=== PATIENT | female | born 1965 | race Caucasian/White ===

== ENCOUNTER 2025-07-18 12:54 | Outpatient (AMB) | payer OTHER, SELFPAY ==
--- NOTE | 2025-07-18 12:59 | A.OFFPC_ITS ---
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 Billiard Table Required: No Accompanied by: Self / Same As Patient Allergies seraquil Adverse Reaction (Mild, Uncoded 07/18/25 13:28) Fainting Medication List - Last Reconciled 07/18/25 by GARRETT Wilson budesonide 180 mcg/actuation (Pulmicort Flexhaler) 1 inh inhalation DAILY PRN bupropion HCl SR (Wellbutrin SR) 150 mg PO DAILY cariprazine (Vraylar) 3 mg PO DAILY cyclosporine 0.05% (Restasis) 1 drp ophthalmic (eye) Q12H folic acid 1 mg PO DAILY gabapentin 100 mg PO BID gabapentin 600 mg PO BEDTIME gemfibrozil 600 mg PO DAILY levothyroxine (Synthroid) 25 mcg PO BID lisinopril 5 mg PO DAILY metformin 500 mg PO DAILY nifedipine ER (Procardia XL) 90 mg PO DAILY topiramate 50 mg PO DAILY venlafaxine ER 37.5 mg PO DAILY Tobacco use date assessed: 07/18/25 Dental Screening Dental Screen Date: 07/18/25 Did you have a dental visit in the last 12 months?: Yes Did you have a dental problem in the last 6 months where you did not have access to dental care?: No Was dental information given to patient?: 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 OBGYN: Need a referral Past medical history: Bipolar, depression, bipolar, high triglycerides Medications: Family HX: htn father, brother, everyone on mother side of family, heart disease everyone on mother side of the family, colon ca, uncle of uncles motherside on cousins. Problem: The patient is a 60-year-old individual presenting to [facility] care and for management of multiple chronic issues. The patient's last physical was approximately one year ago. The primary concern is chronic exhaustion, which has been ongoing for years. The fatigue has been severe, causing the patient to go to bed immediately after work and sleep through the weekends. About a year ago, the patient began experiencing nosebleeds and, after self-research, started taking 325 mg of ferrous sulfate, which provided some improvement. The patient also reports snoring but is unsure about apneic episodes, and wakes up still feeling tired despite adequate hours of sleep. The patient reports a lifelong history of chronic constipation, with bowel movements occurring as infrequently as once per week. The patient has been taking MiraLax 2-3 times per week, noting that more frequent use leads to diarrhea. Fluid intake is approximately 48 ounces of water per day. The patient has a history of significant weight loss, from a high of 330 lbs down to a current weight of approximately 210-220 lbs, and is inquiring about Ozempic to assist with further weight loss. Additional concerns include worsening bilateral hip pain, previously diagnosed as bursitis, which is aggravated by walking and lying down. Prior treatment consisted only of a few exercises shown by a provider, and the patient has never had an x-ray of the hips. The patient also reports an intermittent rash around the mouth for the past nine months. Past medical history is significant for type 2 diabetes, diagnosed many years ago but well-controlled with an A1c of 5.4 for the past 8-9 years. The patient has bipolar disorder and depression, managed by a psychiatrist and therapist. Other chronic conditions include hypertriglyceridemia, hypothyroidism, asthma, and Raynaud's phenomenon. The patient has a history of migraines, which are well-controlled with topiramate and has not had one in years. There is a history of peripheral neuropathy in the feet for 5-6 years, which the patient believes is not related to diabetes, and recent onset of tingling in the fingers when the hands are elevated. Family history is notable for colon cancer in maternal uncles. There is no family history of thyroid cancer or pancreatitis. Current specialists include a neurologist (Dr. Parisi) for migraines and a psychiatrist (Dr. Rush) and therapist (Dr. hCew) for mental health. 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 Health Maintenance - The patient's last physical exam was a bout one year ago. - The patient needs to establish care wi th an NURSE MIDWIFE/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. - Discussed family history of colon canc er in maternal uncles. - Discussed weight management, including the possibility of medications like Ozempic or Wegovy, and the insurance approval process. Social History - Alcohol use: The patient denies drinki ng alcohol. - Nutrition: The patient reported previo usly not eating much meat. - Fluid Intake: The patient consumes jamaal roximately 48 ounces of water daily. - Functional Status: The patient reports significant exhaustion that limits activities, causing the patient to go to bed immediately after work and sleep through weekends. Results - Labs: Patient reports A1c has been sta ble at 5.4 for the last 8-9 years. - Tests: Patient reports prior thyroid t ests were fine. [facility] Medical History (Updated 07/18/25 @ 21:03 by GARRETT Wilson) Bipolar 1 disorder Raynaud disease Hyperlipidemia Hypertension Asthma Diabetes type 2 Family History Brother Hypertension Father Hypertension Mother Hypertension Heart disease Maternal Uncle Colon cancer Social History Alcohol intake: current Comment: once a year Patient Tobacco Use Status: Never used Tobacco Current occupational status: employed Cognitive needs: No Hearing needs: No Vision needs: Yes Questionnaire PHQ-9 Over the last 2 weeks, how often have you been bothered by any of the following problems? 1. Little interest or pleasure in doing things: several days 2. Feeling down, depressed, or hopeless: several days 3. Trouble falling or staying asleep, or sleeping too much: several days 4. Feeling tired or having little energy: more than half the days 5. Poor appetite or overeating: several days 6. Feeling bad about yourself - or that you are a failure or have let yourself or your family down: several days 7. Trouble concentrating on things, such as reading the newspaper or watching television: several days 8. Moving or speaking so slowly that other people could have noticed. Or the opposite - being so fidgety or restless that you have been moving around a lot more than usual: not at all 9. Thoughts that you would be better off or of hurting yourself in some way: not at all Total score: 8 Depression Screening Interpretation: Positive Depression Screening Done: Yes 53450 - PHQ-9 Billing: Yes Source: Developed by Drs. Kev Reddy, Suzanne De Leon, Esdras Snyder and colleagues, with an educational virginie from [employer]. Thrive Questionnaire Date Thrive assessed: 07/18/25 I am a: Patient What is your living situation today?: I have a steady place to live Within the past 12 months, did the food you bought not last and you didn't have the money to get more?: Never true Within the past 12 months, did you worry whether your food would run out before you got money to buy more?: I choose not to answer this question Do you have trouble paying for medicines?: I choose not to answer this question Do you have trouble getting transportation to medical appointments?: No Do you have trouble paying your heating and electricity bill?: I choose not to answer this question Do you have trouble taking care of your child, family member or friend?: No Do you have trouble with day-to-day activities such as bathing, preparing meals, shopping, managing finances, etc.?: No Are you currently unemployed and looking for a job?: No Are you interested in more education?: No Please select the resources that you would like help with: None Currently or been in a relationship where the following occur: No concerns reported THRIVE Score: 0 AUDIT C Alcohol Use Questionnaire (AUDIT-C) 1. How often do you have a drink containing alcohol?: Monthly or less 2. How many drinks containing alcohol do you have on a typical day when you are drinking?: 1 or 2 3. How often do you have six or more drinks on one occasion?: Never Total Score: 1 IRAJ-7 AMB Questionnaire IRAJ-7 Date IRAJ - 7 assessed: 07/18/25 Feeling nervous, anxious, or on edge: 0 = Not at all Not being able to stop or control worryin = Several days Worrying too much about different things: 0 = Not at all Trouble relaxin = Not at all Being so restless that it is hard to sit still: 0 = Not at all Becoming easily annoyed or irritable: 0 = Not at all Feeling afraid as if something awful might happen: 0 = Not at all Total IRAJ-7 score (0-4 normal; 5-9 mild; 10-14 moderate; 15-21 severe): 1 Source: Developed by Drs. Kev Reddy, Suzanne De Leon, Esdras Snyder and colleagues, with an educational virginie from [employer]. IRAJ-7 Assessment Billing IRAJ-7 Assessment Tool: IRAJ-7 Assessment 39746 Review of Systems Narrative Review of Systems - General: Reports chronic exhaustion for years. - HEENT: Reports a history of nosebleeds. - Skin: Reports a recurring rash around the mouth for the past nine months and dry lips. - Cardiovascular: Denies chest pain and heart palpitations. - Respiratory: Reports snoring. - Gastrointestinal: Reports chronic constipation with bowel movements once a week. - Musculoskeletal: Reports bilateral hip pain that worsens with walking and lying down. - Neurological: Reports a history of migraines that are currently controlled. - Psychiatric: Reports a history of depression and bipolar disorder. Const Reports daytime sleepiness, Reports fatigue, Reports headache(s) (History of migraines-well controlled) and Reports snoring Eyes Denies loss of vision ENT Denies vertigo, Denies dizziness, Reports headache(s) (History of migraines-well controlled) and Denies sore throat Card Denies chest pain, Denies leg edema and Denies lightheadedness Resp Denies cough, Denies hemoptysis, Reports snoring and Denies wheezing GI Denies abdominal pain, Denies melena, Reports constipation, Denies diarrhea and Denies vomiting Denies urinary frequency, Denies dysuria and Denies urinary urgency Musc Reports arthralgias (Bilateral hip ), Denies joint swelling, Denies numbness and Denies tingling Skin/Breast Reports rash (Recurrent around mouth) Neuro Denies Abnormal speech present, Denies behavioral changes, Denies vertigo, Denies dizziness, Reports headache(s) (History of migraines-well controlled), Denies loss of vision, Denies memory loss, Denies numbness and Denies tingling Psych Denies anxiety, Denies behavioral changes, Reports depression, Denies memory loss, Denies panic attacks and Reports other (Bipolar disorder) Endo Reports fatigue Timbo/Lymph Denies easy bleeding and Denies easy bruising Aller/Immun Denies wheezing Physical exam (Primary Care) Vital Signs: Last Vital Signs Pulse 80 07/18/25 13:03 Resp 18 07/18/25 13:03 BP 118/72 07/18/25 13:03 Pulse Ox 98 07/18/25 13:03 Oxygen Delivery Method Room Air 07/18/25 13:03 BMI result Body Mass Index 31.6 Tobacco/Smoking Status: Tobacco use Status Tobacco use date assessed 07/18/25 07/18/25 13:20 Patient Tobacco Use Status Never used Tobacco 07/18/25 13:20 PHQ-9: PHQ-9 Score PHQ-9: Total score 8 07/18/25 13:42 Depression Screening Interpretation: Positive Thrive Assessment: Date of Thrive Assessment Date Thrive assessed 07/18/25 07/18/25 13:20 Currently or been in a relationship where the following occur: No concerns reported Narrative Physical Exam - HEENT: Bilateral cerumen impaction noted. - Mouth: Perioral rash and dry lips observed. - Lungs: Clear to auscultation bilaterally. - Abdomen: Soft and non-tender to palpation. - Musculoskeletal: Tenderness elicited on palpation over bilateral hips. Const General: healthy appearing, no acute distress, alert and awake Nutritional Appearance: well nourished Orientation/consciousness: oriented to person, oriented to place and oriented to time HENMT Ears: Abnormal EAC present cerumen impaction bilateral General nose exam: Normal nasal mucous membranes and turbinates present Mouth: lip abnormal (Perioral dried up rash-consistent with angular cheilitis) Eyes Conjunctivae: conjunctivae normal Sclerae: sclerae normal Pupils: Equal, round and reactive pupils present Neck Neck: Yes no lymphadenopathy and Yes no JVD Thyroid: Thyroid normal Carotids: no bruits Resp Effort & Inspection: normal respiratory effort and not tachypneic Auscultation: no crackles, no rales, no rhonchi and no wheezes Cardio Rate: regular rate Rhythm: regular rhythm Heart sounds: S1 normal heart sound present, S2 normal heart sound present, no murmurs and normal S1 and S2 GI Palpation (GI): Soft to palpation, nontender, no hepatomegaly and no splenomegaly Auscultation: normal bowel sounds General: Yes no CVA tenderness Back/Spine/Pelvis Back: no CVA tenderness Skin General skin exam: dry skin Rashes: rashes noted (Angular cheilitis) Neuro General: oriented to person, oriented to place and oriented to time Cranial nerves: Yes Equal, round and reactive pupils present Speech: No Abnormal speech present Gait exam (Neuro): Normal gait present Motor exam (neuro): no tremor noted Extrem Right upper extremity: full ROM Left upper extremity: full ROM Right lower extremity: full ROM and hip/thigh Details: tenderness; no swelling; no edema Left lower extremity: full ROM and hip/thigh Details: tenderness; no swelling; no edema Psych Mental Status: mental status grossly normal Speech and movement: Normal speech and movement present Affect: normal affect Attitude: cooperative Thought process: Normal thought process present Results AMB Hemoglobin A1c AMB Hemoglobin A1c 5.5 % Last Edit by Rosina Taylor MA on 07/18/25 13:40 Results Reviewed Results Reviewed: Laboratory Last Values Hgb A1c (Clinic) 5.5 % (4.0-6.0) 07/18/25 13:30 Coding Level of Care Code New Pt Level 4 (24475) Diagnoses Hypertension, unspecified type I10 Hypertension type: unspecified Type 2 diabetes mellitus with diabetic neuropathy, without long-term current use of insulin E11.40 Diabetes mellitus retirement insulin use: without exterminator use Diabetes mellitus complication status: with neurologic complications Diabetes mellitus complication detail: with unspecified neuropathy Obesity (BMI 30.0-34.9) E66.811 Bilateral hip pain M25.551; M25.552 Daytime sleepiness R40.0 Numbness and tingling R20.0; R20.2 Intermittent asthma, unspecified asthma severity, unspecified whether complicated J45.20 Asthma severity: unspecified severity Asthma persistence: intermittent Asthma complication type: unspecified Loud snoring R06.83 Fatigue, unspecified type R53.83 Fatigue type: unspecified Angular cheilitis K13.0 Bilateral impacted cerumen H61.23 Bipolar 1 disorder F31.9 Constipation, unspecified constipation type K59.00 Constipation type: unspecified constipation type Depression, unspecified depression type F32.A Depression Type: unspecified Additional Codes PHQ-9 - 12656 - PHQ-9 Billing: Yes ([id number]) IRAJ-7 Assessment Billing - IRAJ-7 Assessment Tool: IRAJ-7 Assessment 94374 ([id number]) Time Spent (min) 45 Assessment & Plan Assessment & Plan (1) Hypertension: Code(s): I10 - Essential (primary) hypertension Category: Medical Qualifiers: Hypertension type: unspecified Qualified Code(s): I10 - Essential (primary) hypertension Plan: Blood pressure 118/72-systolic goal less than 130 mm Hg Reinforced low-salt diet Continue lisinopril 5 mg daily, nifedipine ER 90 mg daily (2) Diabetes type 2: Code(s): E11.9 - Type 2 diabetes mellitus without complications Category: Medical Qualifiers: Diabetes mellitus retirement insulin use: without exterminator use Diabetes mellitus complication status: with neurologic complications Diabetes mellitus complication detail: with unspecified neuropathy Qualified Code(s): E11.40 - Type 2 diabetes mellitus with diabetic neuropathy, unspecified (3) Obesity (BMI 30.0-34.9): Code(s): E66.811 - Obesity, class 1 Category: Medical Plan: The patient has made significant progress with weight loss and is interested in pharmacotherapy to continue this progress. A prior authorization for Ozempic will be attempted, though it was explained to the patient that approval is challenging for weight loss alone, especially with a well-controlled A1c. Alternative medications like Wegovy and the general difficulties with insurance coverage for this class of drugs were discussed. (4) Bilateral hip pain: Code(s): M25.551 - Pain in right hip; M25.552 - Pain in left hip Category: Medical Plan: The patient reports worsening bilateral hip pain, consistent with a history of bursitis. A bilateral hip x-ray will be ordered to evaluate for underlying pathology, as one has never been done (5) Daytime sleepiness: Code(s): R40.0 - Somnolence Category: Medical (6) Numbness and tingling: Code(s): R20.0 - Anesthesia of skin; R20.2 - Paresthesia of skin Category: Medical Plan: Patient reports intermittent numbness and tingling to hands primarily when she holds her hands above her heart level. Discussed with the patient that this might be circulation related. We will evaluate lytes and vitamin levels to rule out any deficiencies. (7) Asthma: Code(s): J45.909 - Unspecified asthma, uncomplicated Category: Medical Qualifiers: Asthma severity: unspecified severity Asthma persistence: intermittent Asthma complication type: unspecified Qualified Code(s): J45.20 - Mild intermittent asthma, uncomplicated Plan: Patient reports that her asthma has been well-controlled. She is currently on budesonide 180 mcg/actuation 1 inhalation daily. We will continue to monitor (8) Loud snoring: Code(s): R06.83 - Snoring Category: Medical Plan: The patient's primary concern is chronic, debilitating exhaustion. To further evaluate, fasting labs will be ordered, including an iron panel, given the patient's self-treatment with iron. A home sleep study will also be ordered to rule out sleep apnea as a contributing factor, given the patient's report of snoring and unrefreshing sleep (9) Fatigue: Code(s): R53.83 - Other fatigue Category: Medical Qualifiers: Fatigue type: unspecified Qualified Code(s): R53.83 - Other fatigue Plan: The patient's primary concern is chronic, debilitating exhaustion. To further evaluate, fasting labs will be ordered, including an iron panel, given the patient's self-treatment with iron. A home sleep study will also be ordered to rule out sleep apnea as a contributing factor, given the patient's report of snoring and unrefreshing sleep (10) Angular cheilitis: Code(s): K13.0 - Diseases of lips Category: Medical Plan: The patient has an intermittent rash around the mouth consistent with angular cheilitis. Nystatin ointment will be prescribed to treat the condition. (11) Bilateral impacted cerumen: Code(s): H61.23 - Impacted cerumen, bilateral Category: Medical Plan: Bilateral cerumen impaction was noted on physical exam. The patient is instructed to use Debrox ear drops twice daily for at least four days to soften the wax, then schedule a dedicated appointment for an ear flush (12) Bipolar 1 disorder: Code(s): F31.9 - Bipolar disorder, unspecified Category: Medical Plan: Patient reports that her bipolar is well controlled. Continue Vraylar 3 mg daily, bupropion SR 150 mg daily, venlafaxine ER 37.5 mg daily, gabapentin 100 mg b.i.d. Follow up with Psychiatry as scheduled ( Dr. Rush ) (13) Constipation: Code(s): K59.00 - Constipation, unspecified Category: Medical Qualifiers: Constipation type: unspecified constipation type Qualified Code(s): K59.00 - Constipation, unspecified Plan: The patient has a lifelong history of severe constipation, with bowel movements only once weekly, posing a risk for complications such as bowel perforation. An abdominal x-ray will be ordered to assess the current stool burden. The patient is instructed to increase daily fluid intake to at least 64 ounces and to take MiraLax once daily on a consistent basis, rather than intermittently. If the x- ray reveals significant stool retention, adding a stimulant laxative such as Senna Plus will be considered (14) Depression: Code(s): F32.A - Depression, unspecified Category: Medical Qualifiers: Depression Type: unspecified Qualified Code(s): F32.A - Depression, unspecified Plan: Patient reports that she is doing well. She has seen her psychiatrist every 6 weeks and her therapist every other week Psychiatrist is Dr. Rush and therapist is Naina. Continue venlafaxine ER 37.5 mg, bupropion SR 150 mg daily Plan Discussion Notes I discussed with the patient that we would prioritize investigating the primary complaint of chronic exhaustion. The plan includes ordering extensive fasting labs and a home sleep study, and we will review these results at the next visit. I explained the potential risks associated with severe chronic constipation, such as bowel perforation, and emphasized the need for consistent management. We discussed the plan to order an abdominal x-ray to assess stool burden and the importance of increasing fluid intake and taking MiraLax daily. I also explained that the patient's intermittent diarrhea is likely overflow diarrhea around a hard stool impaction. Regarding the patient's interest in Ozempic, I was transparent about the significant challenges in obtaining insurance approval for weight loss, especially with a well-controlled A1c. I informed the patient that I would still submit the prior authorization request. We discussed the other concerns, including ordering x-rays for the bilateral hip pain, prescribing an ointment for the angular cheilitis, and a plan to manage the bilateral cerumen impaction with drops followed by an office-based flush procedure. Relevant medication refills will be sent to the pharmacy. The patient agreed to a follow-up visit in seven weeks to review all results and formulate a more definitive, comprehensive plan. Patient Instructions - Please get fasting blood work done as ordered. - An order has been placed for an x-ray of your stomach and both of your hips. - A home sleep study will be ordered for you to check for breathing problems during sleep. - Increase your daily water intake to at least 64 ounces (about 8 glasses). - Take one dose of MiraLax every day to help with constipation. - An ointment has been prescribed for the rash around your mouth. - To soften the wax in your ears, use Debrox ear drops. Place 5 drops in each ear twice a day for at least 4 days before your ear cleaning appointment. - After using the drops, please call our office to schedule a separate appointment for an ear flush to remove the softened wax. - Your prescriptions for lisinopril, metformin, and levothyroxine will be refilled and sent to [facility] pharmacy in [place]. - Please schedule a follow-up appointment in 7 weeks to go over all your test results. Orders: Orders Complete Blood Count Auto Diff Today E11.9 - Type 2 diabetes mellitus without complications, E78.5 - Hyperlipidemia, unspecified, I10 - Essential (primary) hypertension, I73.00 - Raynaud's syndrome without gangrene, J45.909 - Unspecified asthma, uncomplicated, R20.0 - Anesthesia of skin, R20.2 - Paresthesia of skin IRON PROFILE Today E11.9 - Type 2 diabetes mellitus without complications, E78.5 - Hyperlipidemia, unspecified, I10 - Essential (primary) hypertension, I73.00 - Raynaud's syndrome without gangrene, J45.909 - Unspecified asthma, uncomplicated Vitamin D 25-OH Total Today E11.9 - Type 2 diabetes mellitus without complications, E78.5 - Hyperlipidemia, unspecified, I10 - Essential (primary) hypertension, I73.00 - Raynaud's syndrome without gangrene, J45.909 - Unspecified asthma, uncomplicated Vitamin B12 and Folate Today E11.9 - Type 2 diabetes mellitus without complications, E78.5 - Hyperlipidemia, unspecified, I10 - Essential (primary) hypertension, I73.00 - Raynaud's syndrome without gangrene, J45.909 - Unspecified asthma, uncomplicated UA CC w/rflx Micro + Cult Today E11.9 - Type 2 diabetes mellitus without complications, E78.5 - Hyperlipidemia, unspecified, I10 - Essential (primary) hypertension, I73.00 - Raynaud's syndrome without gangrene, J45.909 - Unspecified asthma, uncomplicated TSH reflex Free T4 Today E11.9 - Type 2 diabetes mellitus without complications, E78.5 - Hyperlipidemia, unspecified, I10 - Essential (primary) hypertension, I73.00 - Raynaud's syndrome without gangrene, J45.909 - Unspecified asthma, uncomplicated Free T4 (Free Thyroxine) Today E11.9 - Type 2 diabetes mellitus without complications, E78.5 - Hyperlipidemia, unspecified, I10 - Essential (primary) hypertension, I73.00 - Raynaud's syndrome without gangrene, J45.909 - Unspecified asthma, uncomplicated Ferritin Today E11.9 - Type 2 diabetes mellitus without complications, E78.5 - Hyperlipidemia, unspecified, I10 - Essential (primary) hypertension, I73.00 - Raynaud's syndrome without gangrene, J45.909 - Unspecified asthma, uncomplicated XR hips MANN min 3V Today M25.551 - Pain in right hip, M25.552 - Pain in left hip RT home sleep study Today E66.811 - Obesity, class 1, R06.83 - Snoring, R40.0 - Somnolence XR abdomen min 2V Today K59.00 - Constipation, unspecified AMB Hemoglobin A1c Today Z13.9 - Encounter for screening, unspecified Comprehensive [place]. Panel Fast Today E11.9 - Type 2 diabetes mellitus without complications, E78.5 - Hyperlipidemia, unspecified, I10 - Essential (primary) hypertension, I73.00 - Raynaud's syndrome without gangrene, J45.909 - Unspecified asthma, uncomplicated Lipid Panel Today E11.9 - Type 2 diabetes mellitus without complications, E78.5 - Hyperlipidemia, unspecified, I10 - Essential (primary) hypertension, I73.00 - Raynaud's syndrome without gangrene, J45.909 - Unspecified asthma, uncomplicated Magnesium Today E11.9 - Type 2 diabetes mellitus without complications, E78.5 - Hyperlipidemia, unspecified, I10 - Essential (primary) hypertension, I73.00 - Raynaud's syndrome without gangrene, J45.909 - Unspecified asthma, uncomplicated Referrals NURSE MIDWIFE/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 Referral Z01.419 - Encounter for gynecological examination (general) (routine) without abnormal findings Medications: New levothyroxine (Synthroid) 25 mcg PO BID 90 tabs 3RF metformin 500 mg PO DAILY 90 tabs 3RF cyclosporine 0.05% (Restasis) 1 drp ophthalmic (eye) Q12H 60 ea 3RF budesonide 180 mcg/actuation (Pulmicort Flexhaler) 1 inh inhalation DAILY 1 ea 3RF lisinopril 5 mg PO DAILY 90 tabs 3RF nystatin 1 appl topical BID 30 grams 3RF folic acid 1 mg PO DAILY 90 tabs 3RF gemfibrozil 600 mg PO DAILY 90 tabs 3RF nifedipine ER (Procardia XL) 90 mg PO DAILY 90 tabs 3RF topiramate 50 mg PO DAILY 90 tabs 3RF Patient Instructions: Follow up in 7 weeks
[2025-07-18 13:03] VITALS: BP 118/72; PULSE 80; RESP 18; O2SAT 98; BMI 31.6
--- OUTSIDE RECORDS SUMMARY | 2025-07-18 15:20 | XMS_ITS | Clinical Summary ---
Author Organization [facility] Address [address] [place] [address] Care Team Providers Care Candy Attendant Name Role Phone Laith Brand MD Primary Care Provid er Allergies Active Allergy Reactions Criticality Noted Date Comments Quetiapine Syncope High 02/20/2021 Medications * This document contains information received from the source organization and may not represent a complete record from that organization. lisinopriL (PRINIVIL,ZEST RIL) 5 mg tablet Take 1 tablet (5 mg total) by mouth once a day. 30 tablet 03/14/20 22 Active folic acid (FOLVITE) 1 mg tablet Take 1 tablet (1 mg total) by mouth once a day. 30 tablet 03/13/20 22 Active metFORMIN (GLUCOPHAGE) 500 mg tablet 1 tablet DAILY (route: oral) 03/31/20 22 Active gemfibroziL (LOPID) 600 mg tablet Take 600 mg by mouth 2 times a day. 03/31/20 22 Active gabapentin (NEURONTIN) 600 mg tablet Take 600 mg by mouth every evening. 03/31/20 23 Active venlafaxine XR (EFFEXOR XR) 150 mg capsule Take 150 mg by mouth once a day. 04/02/20 23 Active NIFEdipine XL (PROCARDIA XL) 90 mg tablet Take 90 mg by mouth once a day. Active gabapentin (NEURONTIN) 100 mg capsule Take 200 mg by mouth daily. Active cariprazine (Vraylar) 1.5 mg capsule capsule Take 1.5 mg by mouth once a day. Active levothyroxine (SYNTHROID, LEVOTHROID) 50 mcg tablet Take 50 mcg by mouth daily. Active albuterol (PROAIR HFA,VENTOLIN HFA) 90 mcg inhaler Inhale 1-2 puffs by mouth every 6 hours as needed for wheezing or shortness of breath. Use with spacer. Active budesonide-for moteroL (SYMBICORT) 160-4.5 mcg inhaler Inhale 2 puffs by mouth 2 times a day. Rinse mouth with water after use. Do not swallow. Active buPROPion SR (WELLBUTRIN SR) 200 mg tablet Take 200 mg by mouth once a day. Active topiramate (TOPAMAX) 25 mg tablet Take 2 tablets (50 mg total) by mouth 2 times a day. 360 tablet 3 06/28/20 25 026 Active topiramate (TOPAMAX) 25 mg tablet Take 2 tablets (50 mg total) by mouth 2 times a day. 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 CT AP on admission demonstrated stercoral sigmoid colitis (evidenced by large volume stool in the proximal sigmoid colon with focal distention and pericolonic fat stranding but without wall thickening). Suspect overflow incontinence as most likely etiology. 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 In the setting of several days of diarrhea and several weeks of poor p.o. intake. Orthostatic negative with blood pressure criteria, but heart rate was not recorded. -Fluid resuscitation as above -Telemetry Dark stools 04/10/2023 Assessment & Plan (04/12/2023 3:03 PM EDT): Patient endorsed trace clumps of dark-colored stool in her diarrhea preceding admission. She has had an EGD last in January 2022 which demonstrated a moderate Schatzki ring that was dilated, otherwise normal. Colonoscopy at the same time demonstrated excessive looping but was otherwise normal. She did receive a single dose of IV Protonix on current admission, hemoglobin normal at that time. She has endorsed melena today so pantoprazole was started -Pantoprazole 40mg daily -Monitor clinically for melena or hematochezia Migraines 04/10/2023 Assessment & Plan (04/10/2023 8:48 PM EDT): Chronic, follows with Dr. Leblanc (Neurology). On home topiramate, nightly tizanidine, and PRN Ubrelvy. -Continue home topiramate 50mg BID -Hold home tizanidine for now, monitor carefully for withdrawal -Hold home Ubrelvy HTN (hypertension) 04/10/2023 Assessment & Plan (04/12/2023 2:59 PM EDT): Chronic, on home lisinopril and nifedipine -Continue home nifedipine 90mg -Hold home lisinopril Chronic pain 04/10/2023 Assessment & Plan (04/10/2023 8:50 PM EDT): Chronic. She takes home gabapentin (200 mg daily and 600 mg nightly). -Reduced dose gabapentin 200 mg every 12 hours for now Chronic constipation 03/10/2022 Assessment & Plan (03/10/2022 2:34 PM EDT): Patient with history ff chronic constipation. Colonoscopy on 02/06/2022 showed significant looping of the colon. GI recommended repeat colonoscopy in 5 years for surveillance. -- Continue laxatives Asthma 03/06/2022 Assessment & Plan (04/10/2023 8:49 PM EDT): Chronic, on home albuterol and Pulmicort. -Continue home medications Assessment & Plan (03/06/2022 12:47 AM EDT): No acute issues - Pulmicort and brovana nebs while inpatient to replace baseline symbicort inhaler Type 2 diabetes mellitus wit hout complication, without long-term current use of insulin 03/05/2022 Assessment & Plan (04/10/2023 8:50 PM EDT): Chronic, on home metformin. Last A1c was 5.5 in May 2022. -Lispro LDISS ACHS -Hold home metformin Assessment & Plan (03/05/2022 11:20 PM EDT): On metformin alone at baseline. Also takes gemfibrozil. - Hold metformin, start NEETU - Can hold gemfibrozil for now Hypothyroidism 03/04/2022 Assessment & Plan (04/10/2023 8:48 PM EDT): Chronic, on levothyroxine. TSH on admission 3.712. -Continue levothyroxine 50 mcg daily Assessment & Plan (03/06/2022 1:02 AM EDT): On synthroid 75 mcg per facility notes. Recent TSH/FT4 were unremarkable on 03/02. Psych was concerned for possible hypothyroid contributing to symptoms, given poor appetite/non-specific GI symptoms and depressive symptoms with poor cognition. Can investigate further if above workup unrevealing, but this seems unlikely with a normal FT4. - Continue synthroid 75 mcg daily for now Delirium 03/04/2022 Episode of recurrent major depressive disorder 0 03/01/2022 Bipolar disorder 03/01/2022 Assessment & Plan (04/11/2023 2:04 PM EDT): Chronic, multiple psychiatric medications which she has been modifying over the last 1-2 months. It appears that she was just recently started on bupropion and cariprazine. Clonidine held on admission given potential concern for clonidine toxicity secondary to CISCO. -Venlafaxine 75 mg daily -Bupropion 150 mg daily -Hold clonidine -Hold cariprazine, iso renal function, not on formulary Assessment & Plan (03/05/2022 11:30 PM EDT): On several medications at baseline, which we will hold in setting of acute altered mental status. No major concerns for acute withdrawal of the medications that have been reviewed. Specifically, at her psych facility, she was getting lithium, latuda, trazodone and olanzapine prn. In past was on wellbutrin and duloxetine but does not look like these have been administered recently. - Hold lithium, latuda, trazodone and olanzapine for now - If acutely agitated can manage with prn antipsychotics - Formal med rec in AM Schatzki's ring of distal esophagus 02/06/2022 Family history of colon cancer 11/25/2021 Esophageal dysphagia 11/25/2021 Intractable chronic migraine without aura and without status migrainosus 04/17/2021 Assessment & Plan (03/05/2022 11:27 PM EDT): Noted history of this in chart, was previously on topiramate. This was not one of her prescribed medications at her psych facility per documentation however, so it does not seem it needs to be continued. Not clear when she last took it. There is some mild concern for lower seizure threshold with rapid withdrawal, but this risk seems low if she was not being given this med at her psych facility. - Can hold on prescribing topiramate, obtain formal med rec in AM Altered mental status Resolved Problems Problem Noted Date Diagnosed Date Resolved Date SIRS (systemic inflammatory response syndrome) 04/10/2023 04/13/2023 Assessment & Plan (04/12/2023 5:47 PM EDT): SIRS Criteria Patient met the following SIRS Criteria: Respiratory Rate >20 and WBC >12 Sepsis Criteria Sepsis was present on admission. Source of infection is intra-abdominal/stercoral colitis. Blood cultures were drawn prior to antibiotics given. Initial lactic acid was drawn and value was less than 2 so no repeat was required. Patient was ordered the following Antibiotics: Vancomycin and Zosyn Full Sepsis bolus given. Patient received 3 Liters of fluid bolus. Goal: 3 Liters (30ml/kg). Severe Sepsis Patient has organ dysfunction that meets criteria for severe sepsis. Patient has Systolic Blood Pressure <90 and Creatinine >2. 04/10 blood cultures growing Streptococcus mitis. -Cefepime 1g every 6 hours (D1: 04/10) -Flagyl 500 mg every 12 hours (D1: 04/10) -Status post vancomycin (04/10) and Zosyn (04/10) -Follow up 04/11 blood cultures -Trend fever curve and WBC count CISCO (acute kidney injury) 04/10/2023 Assessment & Plan (04/12/2023 2:57 PM EDT): Initial labs demonstrated creatinine 2.93 (most recent baseline was 0.77 in May 2022). In the setting of reported 6-week onset poor p.o. intake and several days of diarrhea preceding admission. Suspect prerenal etiology is most likely. Improved with fluid resuscitation. Urine studies suggest prerenal etiology. This appears to be resolving with creatinine improved to 0.96 on 04/12. -Trend BMP and Mg daily, replete K <4 and Mag <2 -Avoid nephrotoxins, renally dose meds -I/O's, daily weights Hypotension 04/10/2023 04/12/2023 Assessment & Plan (04/12/2023 2:53 PM EDT): Initial BP 85/44, improved to 102/58 in the ED status post total of 3 L IVF. Also noted to have some bradycardia. In the setting of p.o. intake and several days of diarrhea on admission. Given CISCO on admission, toxicology was consulted for concern for potential clonidine toxicity-recommended to hold clonidine serial EKG monitoring. Patient has been hemodynamically stable since 04/12. -Vitals q4hrs -Fluids as per CISCO section Altered mental status, unspe cified altered mental status type 03/05/2022 03/13/2022 Assessment & Plan (03/06/2022 1:04 AM EDT): Unclear etiology, DDx includes polypharmacy, low grade vs chronic lithium toxicity or delirium. No obvious metabolic abnormalities noted on labs. Eclectic level mildly elevated to 1.6 (threshold 1.2). No focality on neuro exam, some expressive aphasia but this could be as result of drug effects. Hyperreflexic with mild clonus on exam, frequent myoclonic jerks and some cognitive/memory deficits, which could all be compatible with lithium toxicity, but level of drug elevation is very mild. - Tox consulted from ED, recommended monitoring overnight with IVF. S/p 1L NS - No evidence of nephrogenic DI - Repeat lithium level and basic labs in AM - Keep on tele to monitor QTc/QRS - CT head unremarkable - Check basic urine tox, syphilis screen. Ammonia normal. Unlikely B12/folate issue with normal H/H - Hold home psych meds for tonight - Do not think MRI is needed urgently (exam doesn't seem compatible with CVA), but will order one on routine basis - Consider psych consult in AM for med adjustment, cullen if improved with holding meds Encounters Date Type Department Care Team Description 06/25/2025 Refill [facility] Neurology [address] [place] [address] Yefri Leblanc MD 05/30/2025 Orders Only [facility] Neurology [address] [place] [address] Yefri Leblanc MD 05/30/2025 Telephone [facility] Neurology [address] [place] [address] Yefri Leblanc MD from Last 3 Months Family History Medical History Relation Name Comments Migraines Mother Relation Name Status Comments Mother Social History Tobacco Use Types Packs/Day Years Used Date Smoking Tobacco: Never Smokeless Tobacco: Never Tobacco Cessation:Counseling Given: Not Answered Alcohol Use Standard Drinks/Week Comments Never 0 (1 standard drink = 0.6 oz pur e alcohol) Comments No Sex and Gender Information Value Date Recorded Sex Assigned at Female 02/20/2021 9:10 AM EDT Legal Sex Female 5:53 AM EDT Gender Identity Female 02/20/2021 9:10 AM EDT Sexual Orientation Straight 02/20/2021 9: 10 AM EDT Last Filed Vital Signs Vital Sign Reading Time Taken Comments Blood Pressure 116/66 08/28/2024 9:23 AM EST Pulse 71 03/21/2024 10:47 AM EDT Temperature 36.2 C (97.2 F) 03/21/2024 10:47 AM EDT Respiratory Rate 18 04/13/2023 3:27 PM EDT Oxygen Saturation 95% 03/21/2024 10:47 AM EDT Inhaled Oxygen Concentration - - Weight 98.1 kg (216 lb 3.2 oz) 08/28/2024 9:23 A M EST Height 177.8 cm (5' 10 ) 04/10/2023 9:54 PM EDT Body Mass Index 31.02 04/10/2023 9:54 PM EDT Plan of Treatment Upcoming Encounters Date Type Department Care Team (Late st Contact Info) Description 07/25/2025 9:00 AM EST Follow-Up [facility] Neurology [address] [place] [address] Yefri Leblanc MD [address] [place] [id number] 10/22/2025 8:00 AM EDT Office Visit [facility] Obstetrics and Gynecology [address] [place] [id number] 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: Dk Bull DO [address] [place] [address] [phone] Health Maintenance Due Date Last Done Comments HIV Screening 1965 Hepatitis C Screening 1965 Ophthalmology Exam 1974 Urine Microalbumin 1974 RSV Vaccine (60+ years old and patients) (1 - Risk 50-74 years 1-dose series) 2014 Hemoglobin A1C 11/16/2022 05/18/2022, 03/02/2022 Mammogram 03/25/2023 03/25/2021 Basic Metabolic Panel 04/13/2024 04/13/2023 , 04/12/2023, 04/11/2023, Additional history exists Pneumococcal Vaccine: 50+ Years (3 of 3 - PCV20 or PCV21) 06/12/2024 06/12/2019, 12/04/2015 Alcohol/Substance Use Screening 08/16/2024 Depression Screening and Follow-Up 08/16/2024 Social Drivers of Health Annual Screening 08/16/2024 DTaP,Tdap,and Td Vaccines (2 - Td or Tdap) 10/09/2024 10/09/2014 Influenza Vaccine (#1) 2025 , 06/12/2023, 05/20/2022, Additional history exists COVID-19 Vaccine ( season) 2025 06/09/2024, 06/12/2023, 05/20/2022, Additional history exists HPV and Pap Smear 02/20/2026 02/20/2021 Colonoscopy 02/06/2027 02/06/2022, 01/15, 02/06/2022, Additional history exists Cervical Cancer Screening 08/28/2027 Pap Smear 08/28/2027 08/28/2024, 02/2022, 02/20/2021, Additional history exists Zoster Vaccines Completed 06/12/2023, 01/15, 11/05/2020 Hepatitis B Vaccines Aged Out No long er eligible based on patient's age to complete this topic Procedures * Due to [place] [employer] law, this organization might not be sharing negative HIV tests. Procedure Name Priority Date/Time Associated Diagnosis Comments PAP Routine 08/28/2024 9:45 AM EST Cervical high risk human papillomavirus (HPV) DNA test positive BASIC METABOLIC PANEL Routine 04/13/2023 6:08 AM EDT HEMOGLOBIN A1C Routine 05/18/2022 4:13 PM EDT Type 2 diabetes mellitus without complication, unspecified whether snf insulin use COLONOSCOPY 02/06/2022 CATHERINE BILATERAL SCREENING DIGITAL MAMMOGRAM WITH TONY Routine 03/25/2021 2:00 PM EDT Encounter for screening mammogram for malignant neoplasm of breast [facility] PAP W/HPV, MRNA E6/E7, AND CT/NG Routine 02/20/2021 4:33 PM EDT Cervical cancer screening from Last 3 Months or Most Recently Relevant to Health Maintenance Results * Due to [facility] law, this organization might not be sharing negative HIV tests. * Pap (08/28/2024 9:45 AM EST) Specimen Adequacy Satisfactory for evaluation [facility] MANUAL 5 2:43 PM EST [facility] Pathologist Cytology Interpretation Negative for intraepithelial lesion or malignancy. [facility] MANUAL 5 2:43 PM EST [facility] at 1443 EST Comment:This is the result o f a morphological screening test with an inherent possibility of a false negative interpretation. Trading Analyst Statement This Pap test was examined by the [facility], [employer], [place], [place]. This Pap test was examined in accordance with the [facility] Cytopathology Laboratory written policy, which incorporates all CLIA mandates. Current screening guidelines can be found in [place]: A Cancer Journal for Clinicians 2020;70:321-346. Current ASCCP management guidelines for abnormal Pap tests are published in the Journal Lower Genital Tract Disease Volume 2020;24:102-131. [facility] MANUAL 5 2:43 PM EST [facility] Clinical History Hx HRPV+ [facility] MANUAL 5 2:43 PM EST [facility] Resulting Agency Case was signed out at [facility], Department of Pathology, [employer] 3 CLIA [id number] [facility] MANUAL 5 2:43 PM EST [facility] Report Header Gynecologic Cytology Report Case: [id number] Authorizing Provider: Dk Alex DO Collected: 08/28/2024 0945 Ordering Location: [facility] Received: 08/28/2024 1155 [facility] Obstetrics and Gynecology First Screen: Antonella Wang Specimen: Screening [facility] Pap, Cervix/Endocervix 5 2:43 PM EST [facility] Brushing Cervix uteri structure / Unknown Non-Blood Collection / Unknown 08/28/2024 9:45 AM EST 08/28/2024 11:55 AM EST us Dk Alex DO LAB PATHOLOGY/CYTOLOGY ORDERA BLES Final Result [facility] [address] [place] [id number], * (ABNORMAL) Basic Metabolic Panel (04/13/2023 6:08 AM EDT) NA 142 135 - 145 mmol/L 04/13/2023 6:51 AM EDT [facility] K 3.5 3.5 - 5.3 mmol/L 04/13/2023 6:51 AM EDT [facility] Cl 110 97 - 110 mmol/L 04/13/2023 6:51 AM EDT [facility] CO2 23(L) 24 - 32 mmol/L 04/13/2023 6:51 AM EDT [facility] BUN 12 7 - 23 mg/dL 04/13/2023 6:51 AM EDT [facility] Creatinine 0.77 0.50 - 1.20 mg/dL 04/13/2023 6:51 AM EDT [facility] Glucose 118(H) 70 - 99 mg/dL 04/13/2023 6:51 AM EDT [facility] Calcium 9.1 8.7 - 10.7 mg/dL 04/13/2023 6:51 AM EDT [facility] Anion Gap 9 5 - 15 04/13/2023 6:51 AM EDT [facility] eGFR 90 >=60 mL/min/1. 73m2 04/13/2023 6:51 AM EDT [facility] Comment:The estimated glomer ular filtration rate (eGFR) is calculated using a new formula developed by the NKF-ASN task force to eliminate race-based correction factors. The new formula uses serum/plasma creatinine, age, and gender to determine eGFR. A value below 60mls/min might indicate kidney disease and will be flagged. For additional information, see Villa strong al, Am J Kidney Dis. 2021;79(2):268- 288, A Unifying Approach for GFR estimation: Recommendations of the NKF-ASN Task Force on Reassessing the Inclusion of Race in Diagnosing Kidney Disease . Blood Structure of peripheral vein / Unknown Venipuncture / Unknown 04/13/2023 6:08 AM EDT 04/13/2023 6:25 AM EDT Dedrick Artis MD LAB BLOOD ORDERABL ES Final Result [facility] [address] [place] [address], [place] * Hemoglobin A1c (05/18/2022 4:13 PM EDT) Hemoglobin A1C 5.5 <5.7 % of total Hgb 05/19/2022 1:22 AM EDT [facility] Comment: For the purpose of screening for the presence of diabetes: <5.7% Consistent with the absence of diabetes 5.7-6.4% Consistent with increased risk for diabetes (prediabetes) > or =6.5% Consistent with diabetes This assay result is consistent with a decreased risk of diabetes. Currently, no consensus exists regarding use of hemoglobin A1c for diagnosis of diabetes in children. According to [place] Diabetes Association (ADA) guidelines, hemoglobin A1c <7.0% represents optimal control in non- diabetic patients. Different metrics may apply to specific patient populations. Standards of Medical Care in Diabetes(ADA). eAG (MG/DL) 111 mg/dL 05/19/2022 1:22 AM EDT [facility] eAG (MMOL/L) 6.2 mmol/L 05/19/2022 1:22 AM EDT [facility] Blood Structure of peripheral vein / Unknown Venipuncture / Unknown 05/18/2022 4:13 PM EDT 05/18/2022 4:13 PM EDT Narrative [facility] 05/19/2022 1:22 AM EDT [facility] Received Date: Laith Brand MD LAB BLOOD ORDERABLES Final Result [facility] [address], [address] [place] [address], [place] [phone] [facility] [address] 3rd Floor, [address] [facility] [place] [phone], * COLONOSCOPY (02/06/2022) Narrative Procedure Note Live Muro MD - 02/06/2022 11:19 AM EDT Gastroenterology Procedure Date: 02/06/2022 11:19 AM Patient Name: Burton Temple Date of : 1965 Admit Type: Outpatient Age: 56 Room: [place] [address] Gender: Female Note Status: Finalized Attending MD: Live Muro MD Procedure: Colonoscopy Indications: Screening in patient at increased risk: Family history of 1st-degree relative with colorectal cancer Comorbidities Providers: Live Muro MD Referring MD: Live Muro MD (Referring MD), Kisha Eduardo (ReferringMD) Requesting Provider: Medicines: See the other procedure note for documentation of the administered medications Complications: No immediate complications. Estimated Blood Loss: Estimated blood loss: none. Procedure: After I obtained informed consent, the scope was passed under direct vision. Throughout the procedure, the patient's blood pressure, pulse, and oxygen saturations were monitored continuously. The Colonoscopy was introduced through the anus and advanced to the cecum, identified by appendiceal orifice and ileocecal valve.The colonoscopy was performed without difficulty. Thepatient tolerated the procedure well. The quality of the bowel preparation was good. Findings: The colon (entire examined portion) revealed moderately excessive looping. The exam was otherwise without abnormality. Impression: - There was significant looping of the colon. - The examination was otherwise normal. - No specimens collected. Recommendation: - Repeat colonoscopy in 5 years for surveillance. Live Muro MD 02/06/2022 11:59:59 AM Number of Addenda: 0 Note Initiated On: 02/06/2022 11:19 AM us Live Muro MD [employer] PROCED [facility]RES Final Result * CATHERINE Bilateral Screening Digital Mammogram With Tony (03/25/2021 2:00 PM EDT) Anatomical Region Laterality Modality Breast Bilateral Mammography Impressions 03/30/2021 6:42 PM EDT No evidence of malignancy in either breast. BI-RADS 1 - NEGATIVE. RECOMMENDATION Routine annual screening mammography is recommended. The patient was entered into a reminder system with a target date for her next mammogram. ~~~~~~~~~~~~~~~~~~~~~~~~~~~~~~~~~~~~~~~~~~~~~ I personally reviewed the exam and agree with the above report. If this radiology report contains a blank impression section, it is an incomplete radiology report. Please contact the interpreting radiologist or if unavailable (e.g. after hours) call ED radiology at [phone] as soon as possible to obtain the completed interpretation. Narrative 03/30/2021 6:42 PM EDT EXAMINATION: BILATERAL SCREENING DIGITAL MAMMOGRAM AND TOMOSYNTHESIS WITH CAD INDICATION: Routine annual screening mammography. No complaints today. TECHNIQUE: Bilateral full-field digital mammography and 3D tomosynthesis was performed. CAD analysis facilitated the interpretation of the mammograms. COMPARISON: Prior mammograms have not been made available. This has to be considered a new baseline examination. FINDINGS: The breasts have scattered areas of fibroglandular density. There are no suspicious masses, no suspicious calcifications, no unexplained areas of architectural distortion seen in either breast. Mirna Acevedo NP IMG BI PROCEDURES Fi nal Result * (ABNORMAL) [facility] w/HPV, mRNA E6/E7, and CT/NG (02/20/2021 4:33 PM EDT) [facility] Tis, HPV mRNA, CT/NG See Below(A) [facility] Comment: TIS, HPV mRNA, CTNG CLINICAL INFORMATION: None given LMP: NONE GIVEN PREV. PAP: NONE GIVEN PREV. BX: NONE GIVEN SOURCE: Cervix, Endocervix BRUSHING STATEMENT OF ADEQUACY: Satisfactory for evaluation. Endocervical/transformation zone component present. Age and/or menstrual status not provided INTERPRETATION/RESULT: Negative for intraepithelial lesion or malignancy. COMMENT: This Pap test has been evaluated with computer assisted technology. ORGAN TEACHER: TOVA MCCANN(ASCP) CT screening location: [place] [address] REVIEW ORGAN TEACHER: OTVA FATIMA(ASCP) CT screening location: [place] [address] PATHOLOGIST: Myla Riddle M.D. , Board Certified in Anatomic and Clinical Pathology, Cytopathology and Immunopathology (electronic signature) HPV mRNA E6/E7 Detected REFERENCE RANGE: Not Detected Methodology: Beamer Hand-Mediated Amplification This assay detects E6/E7 viral messenger RNA (mRNA) from 14 high-risk HPV types (16,18,31,33,35,39,45,51,52,56,58,59,66,68). The analytical performance characteristics of this assay have been determined by [employer]. The modifications have not been cleared or approved by the FDA. This assay has been validated pursuant to the CLIA regulations and is used for clinical purposes. For additional information, please refer to http://[employer]/faq/CNJ667p0 (This link if provided for information/ educational purposes only.) CHLAMYDIA TRACHOMATIS RNA, TMA, UROGENITAL NOT DETECTED REFERENCE RANGE: NOT DETECTED NEISSERIA GONORRHOEAE RNA, TMA, UROGENITAL NOT DETECTED REFERENCE RANGE: NOT DETECTED EXPLANATORY NOTE: The Pap is a screening test for cervical cancer. It is not a diagnostic test and is subject to false negative and false positive results. It is most reliable when a satisfactory sample, regularly obtained, is submitted with relevant clinical findings and history, and when the Pap result is evaluated along with historic and current clinical information. The analytical performance characteristics of this assay, when used to test SurePath(TM) specimens have been determined by [employer]. The modifications have not been cleared or approved by the FDA. This assay has been validated pursuant to the CLIA regulations and is used for clinical purposes. For additional information, please refer to https://[employer]/faq/PVL271 (This link is being provided for information/ educational purposes only.) Brushing Cervix uteri structure / Unknown 02/20/2021 4:33 PM EDT Mirna Acevedo ASSOCIATE PROFESSOR OF THEOLOGY [facility] OR[facility] ORDERABLES Final Result [facility] [address] [facility] [address], [place] [address], [facility] [address] [place] [address] from Last 3 Months or Most Recently Relevant to Health Maintenance Insurance [employer] HMO/POS Advance Directives * Full Code (Latest Code Status on File) Date Activated Date Inactivated Comments 04/10/2023 10:46 AM 04/13/2023 9:47 PM * Full Code Date Activated Date Inactivated Comments 03/07/2022 1:47 PM 03/13/2022 4:05 PM * Full Code Date Activated Date Inactivated Comments 03/05/2022 10:01 PM 03/06/2022 6:15 PM * Full Code Date Activated Date Inactivated Comments 02/28/2022 3:52 PM 03/05/2022 2:56 PM Care Teams Candy Attendant Relationship Specialty Start Date End Date Laith Brand MD [address] [place] [id number] PCP - General Internal Medicine 05/18/22
== END 2025-07-18 14:15 | disposition home or self-care (01) ==
LOC: HO.HMCH 12:54
DX: I10 Essential (primary) hypertension (principal); E11.40 Type 2 diabetes mellitus with diabetic neuropathy, unspecified; E66.811 Obesity, class 1; M25.551 Pain in right hip; M25.552 Pain in left hip; R40.0 Somnolence; R20.0 Anesthesia of skin; R20.2 Paresthesia of skin; J45.20 Mild intermittent asthma, uncomplicated; R06.83 Snoring; R53.83 Other fatigue; F31.9 Bipolar disorder, unspecified; K13.0 Diseases of lips; H61.23 Impacted cerumen, bilateral; K59.00 Constipation, unspecified; F32.A Depression, unspecified; Z13.9 Encounter for screening, unspecified

== ENCOUNTER → 2025-07-18 12:54 | Outpatient (BNVA) | payer OTHER, SELFPAY | DX: I10 Essential (primary) hypertension (principal); E11.40 Type 2 diabetes mellitus with diabetic neuropathy, unspecified; E66.811 Obesity, class 1; M25.551 Pain in right hip; M25.552 Pain in left hip; R40.0 Somnolence; R20.0 Anesthesia of skin; R20.2 Paresthesia of skin; J45.20 Mild intermittent asthma, uncomplicated; R06.83 Snoring; R53.83 Other fatigue; K13.0 Diseases of lips; H61.23 Impacted cerumen, bilateral; F31.9 Bipolar disorder, unspecified; K59.00 Constipation, unspecified; F32.A Depression, unspecified; Z68.31 Body mass index [BMI] 31.0-31.9, adult | CPT/HCPCS: 83036; 96127 ==